=== PATIENT | male | born 1945 | race Hispanic/Latino ===

== ENCOUNTER → 2017-11-11 | Day surgery (SDC) | payer MEDICARE ==
[2017-11-09 14:03] LABS: BASOPHILS # (AUTO) 0.1 (0.0-0.1); BASOPHILS % 0.8 % (0.0-1.0); EOSINOPHILS # (AUTO) 0.4 (0.0-0.4); HEMATOCRIT 43.6 % (38.2-49.6); HEMOGLOBIN 15.2 g/dL (14.0-18.0); LYMPHOCYTES # (AUTO) 2.2 (1.0-3.2); LYMPHOCYTES % 25.1 % (18.0-39.1); MEAN CORPUSCULAR HEMOGLOBIN 32.3 pg (28-32); MEAN CORPUSCULAR HGB CONC 34.9 g/dL (31-35); MEAN CORPUSCULAR VOLUME 92.8 fL (81-99); MONOCYTES # (AUTO) 0.9 (0.2-0.8); MONOCYTES % 9.9 % (4.4-11.3); NEUTROPHILS # (AUTO) 5.3 (2.1-6.9); NEUTROPHILS % 59.9 % (38.7-80.0); PLATELET COUNT 159 x10e3/uL (140-360); RED CELL DISTRIBUTION WIDTH 13.6 % (11.7-14.4)
--- NOTE | 2017-11-09 14:19 | Diagnostic Imaging Report ---
PROCEDURE: Frontal and lateral views of the chest. COMPARISON: None. INDICATIONS: PREOPERATIVE CHEST XRAY FOR LEFT HAND SURGERY FINDINGS: Lines/tubes: None. Lungs: The lungs are well inflated and clear. There is no evidence of pneumonia or pulmonary edema. Slightly elevated left hemidiaphragm. Bilateral calcified densities may represent calcified granulomas or calcified pleural plaques. Pleura: There is no pleural effusion or pneumothorax. Heart and mediastinum: The heart and the mediastinum are normal. Bones: No acute bony abnormality. IMPRESSION: 1. No acute cardiopulmonary disease. Dictated by: Federico Ng M.D. on 11/09/2017 at 14:23 Electronically approved by: Federico Ng M.D. on 11/09/2017 at 14:23
[~2017-11-11] MED LIST: ASPIR 8181 MG PO; BUPIVACAINE HCL 0.5% INJ 30 ML VIAL INJ ONE; CEFAZOLIN SOD 2 GM/D5W 50ML 50 ML IV ONE; DEXAMETHASONE SOD PHOS INJ 4 MG/ML VIAL ONE; FENTANYL CITRATE/PF 100MCG/2 ML INJ ONE; KETOROLAC TROMETHAMINE 30 MG/ML VIAL ONE; LIDOCAINE HCL 2% LOCAL INJ 5 ML SDV VIAL INJ ONE; LISINOPRIL10 MG PO; OMEPRAZOLE40 MG PO; ONDANSETRON HCL INJ 2 MG/ML VIAL ONE; PROPOFOL IV EMULSION 10 MG/ML 20 ML VIAL ONE; SEVOFLURANE INHAL SOLN 250 ML PEN BTL ONE; SLO-NIACIN500 MG PO
--- NOTE | 2017-11-12 18:17 | Operative Report ---
DATE OF PROCEDURE: November 11, 2017 PREOPERATIVE DIAGNOSES 1. Left middle and ring finger triggers. 2. Ankylosis of the left hand. POSTOPERATIVE DIAGNOSES 1. Left middle and ring finger triggers. 2. Ankylosis of the left hand. PROCEDURES PERFORMED 1. Release of the A1 eduarod for the left long and ring fingers. 2. Manipulation under anesthesia of the left hand. 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 ANESTHESIA: General endotracheal intubation anesthesia. IV FLUIDS: Per the anesthesia record. DESCRIPTION OF PROCEDURE: Mr. Collado was taken to the operating room and placed in the supine position on the operating table. Following induction of general anesthesia as well as endotracheal intubation, the patient's left upper extremity was examined under anesthesia. He was found to have a normal-appearing hand. He did, however, have significant stiffness with an inability to passively close his index, long and ring fingers. He had palpable nodules at the level of the A1 eduardo for the long and ring fingers. There was active catching with passive motion of the fingers in the operating room. The patient's upper extremity was prepped and draped in the standard surgical fashion. Case was begun by making an incision over the level of the A1 eduardo for the long finger. This incision was carried through skin only. Blunt dissection was used to deepen the incision. Ragnell retractors were placed in the wound to isolate the flexor tendon and protect the neurovascular structures. The A1 eduardo was identified and divided in its entirety. The underlying tendon was evaluated and was found to have no significant gross abnormalities. The long finger was then placed through a range of motion. There was no longer any catching or locking. The finger was then manipulated under anesthesia to take down adhesions to allow for greater flexion. This improved the patient's flexion of both the metatarsophalangeal joint as well as the proximal interphalangeal joint. Attention was then turned the patient's ring finger. An incision was created overlying the A1 eduardo. This incision was carried through the skin only. Blunt dissection was used to deepen the incision, and Ragnell retractors were used to isolate the flexor tendon. The neurovascular bundles were protected by the Ragnell retractors. The A1 eduardo was divided in line with the skin incision. The flexor tendon was found to be intact without abnormality. The finger was placed through motion. There was no further catching or locking. The finger was then manipulated under anesthesia to improve motion. The index finger was also similarly manipulated under anesthesia to take down adhesions and improve motion. All wounds were copiously irrigated and closed in a multilayer fashion. Sterile dressings were applied. The patient was awakened and taken to the postanesthesia care unit in stable condition. Job#: [id number]
== END | disposition home or self-care (01) ==
LOC: OR 09:58
PROVIDERS: ATTEND Specialist
DX: M65.332 Trigger finger, left middle finger (principal); M65.342 Trigger finger, left ring finger; M24.642 Ankylosis, left hand; I10 Essential (primary) hypertension; K21.9 Gastro-esophageal reflux disease without esophagitis; Z01.810 Encounter for preprocedural cardiovascular examination; Z01.812 Encounter for preprocedural laboratory examination; Z01.818 Encounter for other preprocedural examination; Z88.6 Allergy status to analgesic agent; Z79.82 Long term (current) use of aspirin; Z87.891 Personal history of nicotine dependence
CPT/HCPCS: 26055 ×2; 26340; 36415; 71046; 85025; 93005; J1100; J1885; J2001; J2405